=== PATIENT | male | born 1940 | race Caucasian/White ===

== ENCOUNTER 2024-05-12 05:14 | Observation (INO) ==
--- NOTE | 2024-04-23 11:16 | PAT Medication Instructions ---
Medication Instructions Date of Service April 23, 2024 Home Medications aspirin 81 mg capsule 81 mg PO DAILY atorvastatin 20 mg tablet 20 mg PO DAILY vyezmzo-hbpogzcqn-ilxf tablet 1 tab PO DAILY cholecalciferol (vitamin D3) 50 mcg (2,000 unit) capsule (Vitamin D3) 100 mcg PO DAILY dicyclomine 10 mg capsule 10 mg PO BID PRN lisinopril 40 mg tablet 40 mg PO DAILY metoprolol succinate 50 mg tablet,extended release 24 hr 50 mg PO DAILY grjbljgvbhtv-emriteqo-lhgamt tablet 1 tab PO DAILY tamsulosin 0.4 mg capsule (Flomax) 0.4 mg PO HS tramadol 50 mg tablet 50 mg PO Q8H PRN Continue as directed atorvastatin 20 mg tablet 20 mg PO DAILY metoprolol succinate 50 mg tablet,extended release 24 hr 50 mg PO DAILY ASK your prescriber and surgeon aspirin 81 mg capsule 81 mg PO DAILY DO NOT take the morning of surgery lcabyyc-howjwyrml-hjnn tablet 1 tab PO DAILY cholecalciferol (vitamin D3) 50 mcg (2,000 unit) capsule (Vitamin D3) 100 mcg PO DAILY dicyclomine 10 mg capsule 10 mg PO BID PRN lisinopril 40 mg tablet 40 mg PO DAILY aiwhyyawylzd-fmxylpgj-gqkqnc tablet 1 tab PO DAILY Take morning of surgery With a small sip of water, OTHERWISE NOTHING TO EAT OR DRINK AFTER MIDNIGHT: tramadol 50 mg tablet 50 mg PO Q8H PRN(if needed) Take evening before surgery dicyclomine 10 mg capsule 10 mg PO BID PRN(if needed) tamsulosin 0.4 mg capsule (Flomax) 0.4 mg PO HS tramadol 50 mg tablet 50 mg PO Q8H PRN(if needed) Other Notes If you have any questions please call us at [phone] or [phone] or [phone] or [phone]
--- NOTE | 2024-04-28 10:37 | Anesthesiology Consultation ---
Date of Service April 28, 2024 Assessment & Plan (1) Encounter for pre-operative examination: - check BSG am DOS. - cardiology clearance 05/03/24: "...left hip replacement...asymptomatic from a cardiovascular standpoint...medically optimal for planned hip surgery..." - Outpatient joint assessment: Patient is currently scheduled for inpatient pathway. If re-evaluated and patient/surgeon requests outpatient pathway, patient is not advised candidate for outpatient joint program from anesthesia standpoint pending surgeon's office assessment of pt motivation/support/completion of same day joint program preop requirements. Chart Review Chart Review: Acceptable Risk for Surgery and Patient seen in Pre Admission Testing Teaching & Discussion Pre-Anesthesia Teaching/Discussion Notes: Instructed NPO after midnight before surgery, except medications with 15 cc of water. Medication instructions provided according to the PAT guidelines. History Surgery Operation Date: 05/12/24 10:40 Proposed Procedures p Left Total Hip Arthroplasty - Torsten Chapman MD Height/Weight Height: 5 ft 11 in Weight: 96.3 kg Allergies Allergy/AdvReac Type Severity Reaction Status Date / Time No Known Allergies Allergy Verified 04/23/24 09:09 Medications Home Medications Medication Instructions Recorded Confirmed Last Taken aspirin 81 mg capsule 81 mg PO DAILY 04/23/24 04/23/24 Unknown atorvastatin 20 mg tablet 20 mg PO QPM 04/23/24 04/28/24 Unknown goitjom-dvweouesy-jqsk tablet 1 tab PO DAILY 04/23/24 04/23/24 Unknown cholecalciferol (vitamin D3) 50 100 mcg PO DAILY 04/23/24 04/23/24 Unknown mcg (2,000 unit) capsule (Vitamin D3) dicyclomine 10 mg capsule 10 mg PO BID PRN Abdominal Pain 04/23/24 04/23/24 Unknown lisinopril 40 mg tablet 40 mg PO QPM 04/23/24 04/28/24 Unknown metoprolol succinate 50 mg 50 mg PO QAM 04/23/24 04/28/24 Unknown tablet,extended release 24 hr txntywmiywzv-ggwpognq-dvdvan tablet 1 tab PO DAILY 04/23/24 04/23/24 Unknown tamsulosin 0.4 mg capsule (Flomax) 0.4 mg PO HS 04/23/24 04/23/24 Unknown tramadol 50 mg tablet 50 mg PO Q8H PRN Pain 04/23/24 04/23/24 Unknown Past Medical History Medical History (Updated 04/28/24 @ 10:56 by Valentina Kim PA-C) BPH (benign prostatic hyperplasia) Diverticulosis denies h/o diverticulitis History of kidney stones Hx of gout Hyperlipidemia Hypertension controlled, stable per pt Osteoarthritis Prediabetes Patient denies h/o stroke, seizures, heart attack, heart failure, blood clots/DVTs or blood transfusions. Exercise / Class Metabolic Activity II 4-5 Yardwork/Stairs/Walk up hill (denies chest discomfort or shortness of breath with one flight of stairs) Past Family History Family History Other No family history of adverse response to anesthesia Past Surgical History Surgical History History of colonoscopy History of cystoscopy stone removal History of tooth extraction Past Anesthesia History No Hx of Anesthesia Complications and No Family Hx of Anesthesia Complications History of PONV No Hx of PONV and No Hx of Motion Sickness Social History Smoking Status: Never smoker Do You Dip or Chew Tobacco: No Hx Alcohol Use: No substance use type: does not use Review of Systems Snoring, denies witnessed apneas. Patient denies chest pain, shortness of breath, dyspnea on exertion, reflux, fever, chills, cough, wheezing, or palpitations. Physical Exam Vital Signs Vitals BP 115/68 P 57 TEMP 98.0 SP02 96% on RA RESP 18 Physical Patient resting comfortably in chair in no acute distress, alert and oriented, responding appropriately throughout visit Full cervical extension range of motion without pain TMD 3.5 finger breadths Mallampati Score 3 Dentition: upper plate, denies chipped or loose teeth, caps/crowns, implants or bridges Lungs: normal respiratory effort. Good air movement, clear throughout to auscultation, no adventitious breath sounds Cardiac: regular rate and rhythm, no murmurs noted Carotid arteries: negative bruit bilat Lab Results Anesthesia Preop Results Results Anesthesia Widget: Blood Type A Negative 04/28/24 Antibody Screen NEGATIVE 04/28/24 Testing Laboratory Results 04/22/24 WBC: 8.7 H/H: 15/46 PLATELETS: 209,000 SODIUM: 141 POTASSIUM: 4.0 CHLORIDE: 108 CO2: 24 BUN: 17 CREATININE: 0.9 GLUCOSE: 150 AST: 24 ALT: 18 Alk phos: 94 PT: 12 PTT: 31.5 INR: 1 UA: negative bacteria, trace blood, trace ketones Electrocardiogram Date: 04/22/24 Sinus rhythm with occasional supraventricular premature complexes, rate 70 bpm Marked left axis deviation QRS axis Pattern consistent with pulmonary disease Possible LVH Chest X-Ray Date: 04/22/24 No acute airspace opacities are seen. Echocardiogram Date: 05/02/21 EF 58% Normal LV wall motion No gross valve pathology Stress Test Date: 05/02/[address] abnormalities, negative for ischemia Other Testing Abdomen US 03/18/24 Inhomogeneous echotexture of the liver Right renal cortical cyst No significant interval changes vs 08/11/23 Lumbar MRI 01/24/24 Stable grade 1 anterolisthesis of L4 on L5 and trace retrolisthesis of L1 on L2 L4-L5 grade 1 anterolisthesis with broad-based uncovered disc bulge with ligamentum flavum and facet hypertrophy Narrowing of lateral recesses Facet hypertrophy with mild to moderate bilateral foraminal narrowing. Mild impingement of the exiting bilateral L4 nerve roots Additional spondylotic changes at the remaining levels. Mild encroachment of the exiting L5 nerve roots bilaterally at L5-S1 without impingement Duodenal diverticulum Complex T2 hyperintense pancreatic lesion is considered much less likely when compared to the prior CR
[2024-05-12] MEDS: METOCLOPRAMIDE HCL 10 MG TABLET PO SCH (06:13)
[2024-05-12] MEDS: LR 500ML BOLUS, THEN 15ML/HR IV SCH (06:13)
[2024-05-12] MEDS: ACETAMINOPHEN 500 MG TAB PO SCH ×2 (06:13→11:52)
[2024-05-12] MEDS: FAMOTIDINE 20 MG TAB PO SCH (06:13)
[2024-05-12] MEDS: LR 60ML/HR IV SCH (06:14)
[2024-05-12] MEDS: SODIUM CHLORIDE 0.9% 1,000 ML IV SCH (06:16)
[2024-05-12] MEDS ORDERED: PROPOFOL IV EMULSION 10 MG/ML 20 ML VIAL IV ONE (06:24)
[2024-05-12] MEDS ORDERED: BUPIVACAINE 0.5 % 5 MG/1 ML PF 10ML VIAL ONE (06:24)
[2024-05-12] MEDS ORDERED: LIDOCAINE 2% 2 ML VIAL/AMP(20MG/ML) INFIL ONE (06:26)
[2024-05-12] MEDS ORDERED: fentaNYL citrate PF 100 MCG/2 ML VIAL ONE (06:46)
[2024-05-12] MEDS ORDERED: MIDAZOLAM HCL 1 MG/ML 2ML VIAL ONE (06:46)
[2024-05-12] MEDS: TRANEXAMIC ACID 1,000 MG **IV Pre-op IV SCH (06:52)
[2024-05-12] MEDS ORDERED: fentaNYL citrate PF 100 MCG/2 ML VIAL IV PRN (06:58)
[2024-05-12] MEDS ORDERED: ATROPINE SULFATE 0.1 MG/ML 10ML SYR IV PRN (06:58)
[2024-05-12] MEDS ORDERED: ONDANSETRON INJ 2 MG/ML 2 ML VIAL IV PRN ×2 (06:58→09:29)
[2024-05-12] MEDS ORDERED: ePHEDrine sulfate 50 MG/ML AMP IV PRN (06:58)
[2024-05-12] MEDS ORDERED: PROMETHAZINE HCL 6.25 MG in SODIUM CHLORIDE 0.9% 50 ML IV PRN (06:58)
--- NOTE | 2024-05-12 07:01 | History & Physical Bridge Note ---
Date of Service May 12, 2024 History & Physical Bridge Note I have examined the patient, reviewed the History & Physical and in the interval since the performance of the History & Physical I have noted the following changes of clinical significance: no changes noted
[2024-05-12] MEDS: ceFAZolin 2000MG 2,000 MG/15 ML SYR IV SCH ×2 (07:05→14:31)
[2024-05-12] MEDS ORDERED: ePHEDrine sulfate 50 MG/ML AMP ONE (07:19)
[2024-05-12] MEDS: BUPIVACAINE/EPINEPHRINE 0.5% MPF 1:200,000 30 ML VIAL ONE (07:38)
[2024-05-12] MEDS ORDERED: PHENYLEPHRINE HCL 10 MG/ML VIAL ONE (07:58)
--- NOTE | 2024-05-12 08:42 | Operative Report ---
PG Post Operative Report Pre & Post Diagnosis Operation Date: 05/12/24 07:00 Pre-Op Diagnosis: Left Hip Osteoarthritis Post-Op Diagnosis: Left Hip Osteoarthritis I identified the patient and participated in the time-out.: Yes Procedure Operation Date: 05/12/24 07:00 Actual Procedures p Left Total Hip Arthroplasty(Left) - Torsten Chapman MD Surgeon Torsten Chapman MD Assembler Trim Henry Padilla PA-C Estimated Blood Loss 100 Findings Consistent with Post-Op Diagnosis Operative findings reveal advanced left hip DJD. Had a fairly large hip joint effusion. There was serous in nature did not look inflammatory. He had a fairly valgus alignment to his femoral neck with a significant and long neck length. Specimens Left femoral head sent for pathology. Anesthesia Type Spinal MAC Complications none Disposition Accompanied Patient To Recovery: No Indications The patient is an 84-year-old fairly active and independent gentleman whose had a several year history of increasing hip pain and discomfort left side greater than right. Is been through extensive evaluation for his spine as well as his hips. He had multiple opinions. X-rays show advanced hip arthritis. On x-ray of the right hip was actually worse than the left but the left was more symptomatic. He failed all conservative measures. He is having difficulty maintaining any degree of active lifestyle. He elected proceed with left total hip arthroplasty. Description of Procedure Operative implants consist of: 1 Biomet G7 size 58 mm acetabular shell. 2. [place] hole air and water tester. 3. Highly cross-linked polyethylene liner with a 58 mm outer diam and 40 mm diameter. 4. 6.5 cancellous acetabular screws 1 at 35 mm in length and 1 of 25 mm length. 5. DePuy Corail size 14 femoral stem 6. +8.5/40 mm ceramic articular ball. The patient was taken to the op room, identified, placed on the operating table in the supine position. All conductors were appropriately padded. IV antibiotics provided by anesthesia team. A spinal anesthetic had been implemented in the holding area. The patient was then placed in the right lateral decubitus position. An axillary roll was placed. A stool Birkett position was used for positioning. The left hip and leg were then prepped and draped in usual sterile fashion. A posterolateral approach to the left hip was then performed to a curvilinear incision centered over the greater trochanter. Sharp dissection was carried out through subcutaneous tissue down to level the IT band gluteal fascia. The IT band gluteal fascia was sized longitudinally in line with skin incision. The underlying greater bursa was excised. The piriformis and external rotators along with the posterior hip joint capsule were then released from the posterior aspect the hip as a single layer. Great care was taken throughout the procedure to protect the sciatic nerve at all times. The hip was internally rotated and dislocated. A femoral neck osteotomy cut was made with a Final Cut about 22 mm above the lesser trochanter. Femoral head was removed and sent for pathology. The femur was retracted anteriorly. Attention then drawn the acetabulum. The acetabular labrum was excised. The pulmonary fat was excised. Sequential reaming the acetabular was then performed beginning with size 47 and progressing up to 57. I then reamed a little bit with a 58 reamer and placed a 58 mm Biomet G7 acetabular shell in about 4 degree lateral opening and 20 degrees of anteversion. It was fixed with two 6.5 screws. A trial liner was placed. Attention drawn the femur. The proximal femur was entered with a cookie cutter followed by canal finder. I then broached beginning with size 8 and progressing up to a 14 we got excellent fitted to 14. Could not quite get this the whole way down to the calcar cut but maybe a millimeter proud. We then trialed the hip. The +5 articular ball left a little bit of laxity. He did have a very long neck preoperatively. Due to t he laxity and soft tissue tension we elected to place a +8.5 head. All trial implants were removed. An apex hole air and water tester was placed. Highly cross-linked polyethylene liner was placed. We elected to place a 40 mm liner to maximize his stability and we used a hurd and we placed a posterior and inferior to maximize his stability in flexion. A size 14 KLA femoral stem was impacted in position. A +8.5/40 mm ceramic articular ball was placed. Hip was located once again found to be stable. Soft tissue tension seemed appropriate leg lengths seemed equal. Attention drawn toward closing. The wound was irrigated Cozumel's pulsatile lavage solution. The posterior capsule and external rotators were then repaired through drill holes in the posterior trochanter with #2 Tycron suture. The IT band gluteal fascia then closed in 1 PDS suture in a running fashion for subcutaneous tissue then closed with 2 layers of the deep layer #1 Vicryl suture in the subcutaneous tissues with 2-0 Dexon suture in a buried interrupted fashion. Skin was closed skin virgie. Leg was then cleaned and dried a sterile dressing with Xeroform, 4 fours, sterile ABD pad and foam tape was applied. Patient then transferred to the recovery room in stable condition. Patient tolerated procedure well and no complications. Henry Padilla, my physician faculty research assistant, was present for the entire procedure. His assistance was essential and required for appropriate patient positioning, prepping and draping, surgical exposure, performing the technical details of the operation, placement the implants, closure of the wound, and placement of the sterile bandage. I attest to the content of the Intraoperative Record and any orders documented therein. Any exceptions are noted below.
--- NOTE | 2024-05-12 09:01 | XRay Report ---
XR hip 1V LT w pelvis CLINICAL HISTORY: IN PACU - Post Surgical TECHNIQUE: 1 view of the left hip and single frontal view of the pelvis were obtained. Comparison: Comparison is made to hip radiographs 04/22/2024 FINDINGS: Patient is status post total hip arthroplasty with expected postsurgical changes including soft tissu e swelling and subcutaneous emphysema. Osteoarthritic changes in the right hip are again seen. IMPRESSION: Expected postoperative appearance status post placement of total hip arthroplasty. ACT 112: Negative or not required by law. Electronically signed by: Babar Junior M.D. 05/12/2024 9:00 AM
[2024-05-12] MEDS ORDERED: traMADol HCL 50 MG TABLET PO PRN (09:29)
[2024-05-12] MEDS ORDERED: bisacodyL 10 MG SUPP PR PRN (09:29)
[2024-05-12] MEDS ORDERED: NALOXONE HCL 0.4 MG/1 ML VIAL/CARP IV PRN (09:29)
[2024-05-12] MEDS ORDERED: MAGNESIUM HYDROXIDE SUSP 30 ML UDC PO PRN (09:29)
[2024-05-12] MEDS ORDERED: METOCLOPRAMIDE HCL INJ 5 MG/ML 2 ML VIAL IV PRN (09:29)
[2024-05-12] MEDS ORDERED: DICYCLOMINE HCL 10 MG CAP PO PRN (09:29)
[2024-05-12] MEDS ORDERED: ALUMINUM/MAGNESIUM SUSP 30 ML UDC PO PRN (09:29)
[2024-05-12] MEDS ORDERED: HYDROmorphone INJ 0.5 MG/0.5 ML SYR IV PRN (09:29)
[2024-05-12] MEDS ORDERED: SENNA 8.6 MG TAB PO SCH (09:29)
[2024-05-12] MEDS ORDERED: NON-FORMULARY MEDICATION (Calcium-Magnesium-Zinc Tablet) PO SCH (09:29)
--- NOTE | 2024-05-12 09:30 | Anesthesiology Progress Note ---
Date of Service May 12, 2024 Anesthesia Post Procedure Vital Signs Vital Signs: Temp Pulse Pulse Resp BP Pulse Ox O2 Del Method 05/12/24 09:10 36.5 C 77 20 122/58 L 97 Room Air 05/12/24 09:00 83 20 109/59 L 98 Room Air 05/12/24 08:50 78 12 114/55 L 97 Room Air 05/12/24 08:40 80 14 111/55 L 97 Room Air 05/12/24 08:32 36.8 C 84 21 114/55 L 97 Room Air 05/12/24 05:49 36.7 C 64 20 148/94 H 98 Room Air Pain Intensity Left Hip: Pain Intensity: 2 Transfer of Care Handoff Completed per policy Notes Mental Status: alert / awake / arousable Patient Amnestic to Procedure: Yes Nausea / Vomiting: adequately controlled Pain: adequately controlled Airway Patency, RR, SpO2: stable & adequate BP & HR: stable & adequate Hydration State: stable & adequate Neuraxial Anesthesia: was administered and sensory block is resolving Anesthetic Complications: no major complications apparent and Pt Satisfied with anesthetic care
[2024-05-12] MEDS: dexAMETHasone**PF** 10 MG/ML VIAL IV SCH (09:33)
[2024-05-12] MEDS: CeleBREX 200 MG CAP PO SCH (09:33)
[2024-05-12] MEDS: ASPIRIN 81 MG ECTAB PO SCH (11:52)
[2024-05-12] MEDS: MULTIVITAMIN TAB PO SCH (11:52)
[2024-05-12] MEDS: METOPROLOL SUCC 50MG EXT REL TAB PO SCH (11:52)
[2024-05-12] MEDS: DOCUSATE SODIUM 100 MG CAP PO SCH (11:52)
[2024-05-12] MEDS: CEROVITE ADV FORMULA TAB PO SCH (11:52)
[2024-05-12] MEDS: KETOROLAC TROMETHAMINE 15 MG/ML VIAL IV SCH (11:53)
[2024-05-12] MEDS: CHOLECALCIFEROL 25 MCG (1000 UNITS) TAB PO SCH (12:02)
[2024-05-12] MEDS: TRANEXAMIC ACID / 0.7% NACL 1,000 MG/100 ML BAG IV SCH (14:31)
[2024-05-12] MEDS: ASCORBIC ACID 500 MG TAB PO SCH (17:10)
[2024-05-12] MEDS: SENNA 8.6 MG TAB PO SCH (21:07)
[2024-05-12] MEDS: TAMSULOSIN HCL 0.4 MG CAP PO SCH (21:07)
[2024-05-12] MEDS: lisinopril 40 MG TAB PO SCH (21:07)
[2024-05-12] MEDS: ATORVASTATIN 20 MG TAB PO SCH (21:07)
[2024-05-12 23:13] VITALS: RESP 16
[2024-05-13 04:10] LABS: Basophils # (auto) 0.01 K/uL (0.00-0.20); Basophils % (auto) 0.1 %; Hematocrit (blood only) 35.4 % (42.0-52.0); Hemoglobin 12.1 g/dl (14.0-18.0); Immature Granulocytes # (auto) 0.06 K/uL (0.01-0.20); Immature Granulocytes % (auto) 0.4 %; Lymphocytes # (auto) 1.33 K/uL (1.20-3.40); Lymphocytes % (auto) 8.8 %; Mean Corpuscular Hemoglobin 31.3 pg (25.0-34.0); Mean Corpuscular Hgb Conc 34.2 g/dL (32.0-36.0); Mean Corpuscular Volume 91.7 fL (80.0-100.0); Mean Platelet Volume 11.4 fL (9.4-12.4); Monocytes # (auto) 1.23 K/uL (0.11-0.59); Monocytes % (auto) 8.1 %; Neutrophils # (auto) 12.55 K/uL (1.40-6.50); Neutrophils % (auto) 82.6 %; Platelet Count 149 K/uL (130-400); RDW Standard Deviation 40.3 fL (36.4-46.3); Red Blood Count 3.86 M/uL (4.70-6.10); White Blood Count 15.18 K/ul (4.8-10.8)
[2024-05-13 04:31] LABS: Anion Gap 5 (3-11); BUN Creatinine Ratio 19.5 (10-20); Blood Urea Nitrogen 25 mg/dl (6-23); Calcium 8.6 mg/dl (8.6-10.3); Carbon Dioxide 24 mmol/L (21-32); Chloride 108 mmol/L (98-107); Creatinine Clr Calc Pharmacy 52.5 ml/min; Glucose 140 mg/dl (70-99(Fasting)); Sodium 137 mmol/L (136-145)
[2024-05-13 07:33] VITALS: BP 105/66; TEMP 97.7; O2SAT 98
--- NOTE | 2024-05-13 07:44 | Orthopedic Progress Note ---
Date of Service May 13, 2024 Assessment & Plan (1) Status post left hip replacement: Plan: 84-year-old gentleman postop day 1 from left hip replacement doing pretty well. Pains controlled. Hips located. He is neurologically intact. Plan: 1. DVT prophylaxis including thigh-high high teds, SCDs, aspirin twice a day. 2. PT/OT. Weight-bear as tolerated. Left total hip protocol. 3. Pain control doing okay with current pain regimen. 4. Disposition plan is to discharge to home with some home health. His daughters come to come and stay and assist in his care. (2) Prediabetes: (3) Hx of gout: (4) History of kidney stones: (5) Hypertension: (6) Hyperlipidemia: Admission and Anticipated Discharge Date Admission Date: May 12, 2024 Subjective 84-year-old gentleman now postoperative day 1 from a left total hip replacement. He is doing well. He got up and walked with some help last evening. His pain is controlled. No chest pain or shortness of breath. Not feeling dizzy or lightheaded. He is hoping to go home today. Physical Exam Physical Exam: Physical examination was a pleasant elderly male. Lying bed looks comfortable. He is awake alert and oriented. Examination of the left hip reveals the dressing be clean dry and intact. Leg lengths are equal. He is neurologically intact. Respiratory: normal respiratory effort, lungs clear to auscultation Cardiovascular: RRR, no murmur, no edema Gastrointestinal (Abdomen): normal bowel sounds, soft, nontender, no hepatosplenomegaly Results & Data Vital Signs (Past 12 Hours) Vital Signs Temp Pulse Pulse Resp BP Pulse Ox O2 Del Method 05/13/24 07:33 36.5 C 61 16 105/66 98 Room Air 05/13/24 03:31 36.4 C L 60 16 93/67 L 97 Room Air 05/12/24 23:21 54 L 05/12/24 23:00 36.4 C L 45 L 16 97/60 L 97 Room Air Laboratory Results Hemoglobin is 12.1. Hematocrit is 35.4. Electrolytes are stable.
[2024-05-13] MEDS: dexAMETHasone 10 MG in SYRINGE 0 ML IV SCH (08:30)
[2024-05-13 10:37] VITALS: PULSE 54
--- NOTE | 2024-05-17 10:07 | Discharge Summary ---
Date of Service May 17, 2024 Principal Diagnosis Same as "Discharge Diagnosis" noted below under Discharge Instructions. Discharge Data Procedures Performed Operation Date: 05/12/24 07:00 Actual Procedures p Left Total Hip Arthroplasty(Left) - Torsten Chapman MD Hospital Course (1) Status post left hip replacement: This is a 84 year old patient admitted on 05/12/24 and underwent total hip arthroplasty. He tolerated the procedure well and there were no complications. Transferred to the PACU post op and later to the orthopedic floor for further care. He was given ancef for antibiotic prophylaxis. He was also given ROME stockings, SCDs, and aspirin for DVT prophylaxis. Hemoglobin, hematocrit, and vital signs were monitored during his hospital stay and remained stable. Did not require any blood transfusions. There were no complications during his hospital stay. By post op day #1 the patient was tolerating a regular diet, pain was reasonably controlled with oral pain medicine, and he was participating in physical therapy. On post op day #1 the patient was discharged home and set up with home health care. He was given printed discharge instructions including prescriptions for extra strength tylenol, aspirin, ketorolac, zofran, senokot, and tramadol. Continue hip precautions. Continue physical therapy, weight bearing as t olerated. Continue ROME stockings. Follow up approximately 2 weeks post op or sooner if there are problems or concerns. PG Care Time/CCT Total # of Minutes Spent Total Time Spent with Patient: : Discharge Plan Discharge Items Patient Disposition: Home - Home Health Services Reason For Visit: Left Hip Osteoarthritis Discharge Diagnosis: Left Hip Replacemen t Activity: Per Instructions section Activity Comment: Follow/Obey hip precautions at all times Weightbearing: Full weightbearing Weightbearing Comment: Weightbear as tolerated obeying hip precautions at all times. Non-emergency contact: Surgeon Call non-emergency contact if: you have any medication questions Follow-up/Referrals: Inga Falcon PA-C [Primary Care Provider] - Diet: Regular Addtl Attending Provider Instructions: ACTIVITY RECOMMENDATIONS: Diet: * You may resume previous diet. Physical Therapy: * Aggressive physical therapy is not usually needed. You will learn to take care of yourself safely and walk. * Follow the "Hip Precautions Instructions." * In some cases, the social media marketing analyst at the hospital will arrange to have a therapist come to your house for the first couple of weeks to help you learn these skills. * You need to practice on your own or with the help of a family member as needed. * When you learn these skills, most of the therapy can be done on your own. Home Exercise: * You were shown a series of exercises in the hospital. Do these exercises three to four times each day including the exercises you were shown in physical therapy. Walking: * Get up and walk several times each day. For the first four weeks, try not to stand or walk for more than one hour at a time. If you do stand or walk for more than one hour, you will not hurt anything, but your leg will likely swell. * As you feel comfortable, you may change from the walker or crutches to a cane and then to independent walking. MEDICATIONS: New Medicine: * You will likely be taking one or more of these medicines: 1. Tramadol - Take, as directed, when you need it, every six hours to control your pain. 2. Aspirin - Thins your blood to lessen the chance of forming a blood clot. * The most common side effects of pain medicine and iron are nausea and constipation. If nausea or constipation is too much of a problem or if you have any questions about your new medicines or doses, call [facility] at . We will try to help you manage these issues. "VERY IMPORTANT TO READ AND REVIEW" Pain: * The immediate post-operative period after hip replacement surgery is often quite painful. * You are given a prescription for pain medicine. You should take it, as directed, when you need it, especially before physical therapy and before going to bed. Pain that interferes with sleep is very common and can last several months. * You will likely need pain medicine for the first two to four weeks. It will not stop all of the pain. The pain will lessen and as you feel better, you may change to milder pain medicine such as Tylenol. * The most common side effects of pain medicine are nausea and constipation, so don't take more than you need. SPECIAL CARE INSTRUCTIONS: TEDs/Elastic Stockings: * The white elastic stockings help limit swelling and prevent blood clots from forming in your legs. The more you wear them, the more they work. * Wear them for six weeks. Incision Site Care: * Remove dressing postoperative day 2 and then shower. Keep direct shower pressure off the incision site. * After showering, cover virgie with dry gauze and change daily or more frequently if the dressing is getting saturated with drainage. * May completely stop using bandage if wound is dry and no drainage * [place] are removed between 2 and 3 weeks post-op. If your follow-up appointment is made before 2 weeks, please have your appointment re- scheduled. It is too early to remove the virgie. Prevention of Infection: * Take antibiotics one hour before any dental cleaning, dental work, urological procedure, gastrointestinal procedure or any invasive surgery in order to prevent your new joint from getting infected. * You may get the antibiotics from the doctor performing the procedure or you may call our office at before and we will call in a prescription to the pharmacy of your choice. Things to Watch For: * Drainage from the incision site that occurs more than one week after your surgery. * Severely increased leg pain or swelling. * Increased redness at the incision site. * Fever above 102 degrees Fahrenheit. * Unusual chest pain or shortness of breath. * Unusual pain or burning with urination. Call [facility] at with any of the above problems or if you have any questions about your medicines or recovery. FOLLOW UP VISIT: Make an appointment to see your doctor for approximately two weeks after surgery for a progress check and staple removal by calling the office at . Pending Studies at Discharge: No Stand-Alone Forms: My [facility], Smoking Cessation Medications and DC Order Prescriptions: New aspirin 81 mg Tablet,Delayed Release (Dr/Ec) 81 mg PO BID 30 Days Qty: 60 0RF Rx Instructions: Take to prevent blood clots. Continued tramadol 50 mg tablet 50 - 100 mg PO Q6 PRN (Reason: pain) Qty: 40 0RF Rx Instructions: Take as needed for pain ondansetron 4 mg tablet,disintegrating 4 mg PO Q8 PRN (Reason: nausea) Qty: 20 1RF Rx Instructions: Take as needed for nausea sennosides [Senokot] 8.6 mg tablet 8.6 mg PO BID 14 Days Qty: 28 0RF Rx Instructions: Take two times a day to prevent/treat constipation ketorolac 10 mg tablet 10 mg PO Q8H 5 Days Qty: 15 0RF Rx Instructions: Take 3 times per day with food for 5 days to lessen pain and swelling. acetaminophen [Tylenol Extra Strength] 500 mg tablet 1,000 mg PO TID 30 Days Qty: 180 0RF Rx Instructions: Take 3 times per day to lessen pain. atorvastatin 20 mg Tablet 20 mg PO QPM metoprolol succinate 50 mg Tablet Extended Release 24 Hr 50 mg PO QAM tramadol 50 mg Tablet 50 mg PO Q8H PRN (Reason: Pain) [id number] Tablet 1 tab PO DAILY tamsulosin [Flomax] 0.4 mg Capsule 0.4 mg PO HS lisinopril 40 mg Tablet 40 mg PO QPM dicyclomine 10 mg Capsule 10 mg PO BID PRN (Reason: Abdominal Pain) [id number] Tablet 1 tab PO DAILY cholecalciferol (vitamin D3) [Vitamin D3] 50 mcg (2,000 unit) Capsule 100 mcg PO DAILY aspirin 81 mg Capsule 81 mg PO DAILY Krames/Other Patient Handouts: How Your Hip Works, Hip Replace Post Op Pain Admission Data Admit Date/Time: 05/12/24 08:34 Attending Provider: Torsten Chapman Admit Provider: Torsten Chapman Primary Care Provider: Inga Falcon Other Providers: Macy,Home Health Other Interventions: Discharge Summary Assessment (RN) Last Done: 05/13/24 10:36
== END 2024-05-13 11:24 | disposition home health service (06) ==
LOC: 3E 05:14 → ASU 05:14
DX: M16.0 Bilateral primary osteoarthritis of hip; I10 Essential (primary) hypertension; Z79.899 Other long term (current) drug therapy; Z79.82 Long term (current) use of aspirin